=== PATIENT | female | born 1985 | race Two or more races ===

== ENCOUNTER 2022-10-05 08:09 | Inpatient (IN) | payer OTHER ==
[~2022-10-05] VITALS: Ht 147.3 cm; Wt 56.2 kg
[2022-10-05] MEDS ORDERED: KEPPRA500 MG PO ×2 (08:55→13:57)
[2022-10-05] MEDS ORDERED: TRILEPTAL150 MG PO ×2 (08:56→13:57)
[2022-10-05] MEDS ORDERED: TRILEPTAL300 MG PO (08:57)
[2022-10-05] MEDS ORDERED: AVAPRO150 MG PO (08:57)
[2022-10-05] MEDS ORDERED: MULTIVITA PO (08:58)
[2022-10-05] MEDS ORDERED: CREST PO (08:58)
[2022-10-11] MEDS ORDERED: OMEPRAZOLE20 MG (14:25)
[2022-10-11] MEDS ORDERED: MULTI VITAMIN1 EACH (14:25)
[2022-10-11] MEDS ORDERED: ROSUVASTATIN CA40 MG (14:28)
== END 2022-10-14 13:04 | disposition home or self-care (01) | DRG 743 ==
LOC: SURH 10-11 08:15 → O/R 10-11 10:30 → OB/GYN 10-11 10:30 → SURH 10-11 19:00 → OB/GYN 10-12 00:43
PROVIDERS: ADMIT Obstetrics & Gynecology; ATTEND Obstetrics & Gynecology
PROC: 0UT70ZZ Resection of Bilateral Fallopian Tubes, Open Approach (ICD-10-PCS; 2022-10-11)
PROC: 0UT90ZZ Resection of Uterus, Open Approach (ICD-10-PCS; principal; 2022-10-11 19:00)
DX: D25.1 Intramural leiomyoma of uterus (principal); D25.2 Subserosal leiomyoma of uterus; N84.0 Polyp of corpus uteri; Z20.822 Contact with and (suspected) exposure to COVID-19